=== PATIENT | female | born 1985 | race Caucasian/White ===

== ENCOUNTER 2017-12-04 22:08 | Emergency (ER) | payer BC ==
[~2017-12-04] VITALS: Ht 160 cm; Wt 63.5 kg
[2017-12-04 22:14] VITALS: BP_SYST 110
[2017-12-04 23:29] VITALS: BP_SYST 116
== END 2017-12-04 23:29 | disposition home or self-care (01) ==
LOC: SED 22:08
DX: L25.9 Unspecified contact dermatitis, unspecified cause (principal)
CPT/HCPCS: 99283